=== PATIENT | female | born 1990 | race African-American/Black ===

== ENCOUNTER 2017-08-26 16:59 | Emergency (ER) | payer BC ==
[2017-08-26 17:18] LABS: Bilirubin Negative (Negative); Blood, Urine Negative (Negative); Clarity CLEAR (Clear); Glucose, Urine (Dipstick) Negative (Negative); Leukocyte Negative (Negative); Nitrite Negative (Negative); Protein, Urine (Dipstick) Negative (Neg-Trace); Specific Gravity, Urine 1.026 (1.002-1.036); pH, Urine 7.5 (5.0-9.0)
[2017-08-26 17:22] LABS: Pregnancy Test - Urine (BHCG) POSITIVE (Negative); Pregu Control Background? CLEAR/WHITE (CLR/WHITE); Pregu Control Bar Appear? YES (CONTROL BAR); Specific Gravity 1.026 (1.002-1.036)
[2017-08-26 17:26] LABS: #Basophils 0.1 thou/uL (0.0-0.2); #Eosinphils 0.1 thou/uL (0.0-0.7); #Lymphocytes 2.5 thou/uL (1.20-3.40); #Monocytes 0.6 thou/uL (0.11-0.59); #Neutrophils 3.1 thou/uL (1.40-6.50); %Basophils 1.2 % (0.0-1.0); %Eosinophils 0.8 % (0.0-10.0); %Lymphocytes 39.2 % (21.0-51.0); %Monocytes 9.7 % (0.0-10.0); %Neutrophils 49.1 % (42.0-75.0); Hemoglobin 14.8 g/dL (12.0-16.0); Mean Corpuscular HGB CONC 33.8 g/dL (32.0-36.0); Mean Corpuscular Hemoglobin 32.1 pg (27.0-31.0); Mean Corpuscular Volume 95.1 fl (81.0-99.0); Mean Platelet Volume 6.5 fL (7.4-10.4); Platelet Count 345 thou/uL (130-400); RBC Distribution Width 12.1 % (11.5-14.5); White Blood Cell (WBC) Count 6.4 thou/uL (4.8-10.8)
[2017-08-26 17:49] LABS: ALT (SGPT) 11 U/L (8-55); AST (SGOT) 19 U/L (5-34); Albumin 4.3 g/dL (3.5-5.0); Alkaline Phosphatase 57 U/L (40-150); Anion Gap 11 mmol/L (10-20); BUN (Urea Nitrogen) 14 mg/dL (7.0-18.7); Bilirubin, Total 0.5 mg/dL (0.2-1.2); Calc. Creatinine Clearance 0 mL/min (70-130); Calcium 9.8 mg/dL (7.8-10.44); Carbon Dioxide 23 mmol/L (22-29); Chloride 106 mmol/L (98-107); Estimated GFR-MDRD Greater than 90; Glucose 91 mg/dL (70-105); Lipase 24 U/L (8-78); Potassium 3.6 mmol/L (3.5-5.1); Protein, Total 8.3 g/dL (6.0-8.3); Sodium 136 mmol/L (136-145)
--- NOTE | 2017-08-26 18:20 | ULT ---
PELVIC ULTRASOUND: Date: 08/26/17 HISTORY: Pelvic pain, suprapubic pain with onset 2-3 days ago. Cramping. FINDINGS: Multiple endovaginal sonographic images of the pelvis are obtained. The uterus measures 8.2 cm x 4.1 cm x 4.6 cm. The endometrial stripe measures 1.3 cm in thickness, wh ich is at the upper limits of normal in a normal menstruating female patient. There is no fluid colle ction seen in the endometrial canal. The right ovary measures 4.5 cm x 4.4 cm x 4.0 cm. There is a 2.6 cm anechoic cystic structure seen i n the right ovary with thin, linear septation. Given the positive test, this could potentia lly represent a corpus luteal cyst. The left ovary has a normal sonographic appearance, measuring 3.3 cm x 1.9 cm x 1.8 cm. Doppler evaluation of the right ovary with spectral analysis and color flow evaluation does demonstra te arterial flow. Doppler evaluation and spectral analysis of the left ovary demonstrates venous flow , but arterial flow is difficult to elicit. No free fluid is seen in the cul-de-sac. IMPRESSION: 1. Endometrium is at the upper limits of normal in thickness, but no fluid collection is seen in the endometrial canal to suggest an intrauterine gestation. Findings may be related to very early intrau terine gestation. Ectopic cannot be excluded based on sonographic evaluation. 2. Dominant cyst within the right ovary with thin, linear septation. Given positive , this could potentially represent corpus luteal cyst. Follow-up evaluation suggested. 3. Normal appearing left ovary. Arterial flow is not able to be elicited in the left ovary, but this may be related to positioning. There is venous flow present in the left ovary. 4. Serial quantitative beta HCG levels and follow-up ultrasound examination may be beneficial for fu rther evaluation. POS: TYRONE
[2017-08-28 22:31] LABS: Chlamydia by PCR Not Detected (NotDetected); GC by PCR Not Detected (NotDetected)
== END 2017-08-26 20:35 | disposition home or self-care (01) ==
LOC: ERS 16:59
DX: O99.89 Other specified diseases and conditions complicating pregnancy, childbirth and the puerperium (principal); R10.9 Unspecified abdominal pain; O99.331 Smoking (tobacco) complicating pregnancy, first trimester; F17.210 Nicotine dependence, cigarettes, uncomplicated; Z3A.01 Less than 8 weeks gestation of pregnancy
CPT/HCPCS: 36415; 76856; 80053; 81003; 81025; 83690; 84702; 85025; 86900; 86901; 87086; 87480; 87491; 87510; 87591; 87660

== ENCOUNTER 2017-09-03 15:15 | Emergency (ER) | payer BC ==
[2017-09-03 15:59] LABS: #Basophils 0.1 thou/uL (0.0-0.2); #Eosinphils 0.1 thou/uL (0.0-0.7); #Lymphocytes 2.4 thou/uL (1.20-3.40); #Monocytes 0.7 thou/uL (0.11-0.59); #Neutrophils 3.4 thou/uL (1.40-6.50); %Basophils 0.9 % (0.0-1.0); %Eosinophils 1.1 % (0.0-10.0); %Lymphocytes 36.3 % (21.0-51.0); %Neutrophils 50.8 % (42.0-75.0); Hemoglobin 13.7 g/dL (12.0-16.0); Mean Corpuscular HGB CONC 34.5 g/dL (32.0-36.0); Mean Corpuscular Hemoglobin 32.2 pg (27.0-31.0); Mean Corpuscular Volume 93.4 fl (81.0-99.0); Mean Platelet Volume 6.5 fL (7.4-10.4); Platelet Count 351 thou/uL (130-400); Red Blood Cell (RBC) Count 4.27 mill/uL (4.20-5.40); White Blood Cell (WBC) Count 6.6 thou/uL (4.8-10.8)
[2017-09-03 16:59] LABS: Bilirubin Negative (Negative); Blood, Urine Trace (Negative); Clarity CLEAR (Clear); Glucose, Urine (Dipstick) Negative (Negative); Leukocyte Small (Negative); Nitrite Negative (Negative); Protein, Urine (Dipstick) Negative (Neg-Trace); Specific Gravity, Urine 1.024 (1.002-1.036); pH, Urine 6.5 (5.0-9.0)
[2017-09-03 17:06] LABS: Bacteria/HPF None Seen HPF (None Seen); Hyaline Casts/LPF NONE SEEN LPF (0-3 Hyaline); RBC/HPF None Seen HPF (0-3); Squamous Epithelial 0-3 HPF (0-3); WBC/HPF 0-3 HPF (0-3)
--- NOTE | 2017-09-03 18:39 | ULT ---
PELVIC ULTRASOUND INCLUDING TRANSABDOMINAL AND TRANSVAGINAL AND VASCULAR DUPLEX WITH COLOR AND SPECTR AL DOPPLER IMAGING: HISTORY: A 27-year-old female with a history of vaginal bleeding. An hCG is 5452. COMPARISON: 08/26/2017 FINDINGS: Again noted is markedly thickened, heterogeneous endometrium. There is now what appears to be a gest ational sac, which measures approximately 0.6 cm, which would be equivalent to approximately 5 weeks' and 2 days' gestation. Again noted is a right ovarian cyst, measuring 3.1 x 3.5 cm. The left ovary is not seen. There is some heterogeneous fluid density around the edge of a portion of the gestatio nal sac, suspicious for retrochorionic hemorrhage. IMPRESSION: Interval development of a small gestational sac and possible small yolk sac with some probable retroc horionic hemorrhage associated with it. Follow-up serum hCGs are recommended. If the status of the remains in doubt, consideration for another follow-up ultrasound study in several weeks yodit ht be of benefit. Stable right ovarian cyst. Nonvisualized left ovary. POS: TYRONE
== END 2017-09-03 18:15 | disposition home or self-care (01) ==
LOC: ERS 15:15
DX: O20.0 Threatened abortion (principal); Z87.891 Personal history of nicotine dependence
CPT/HCPCS: 36415; 76856; 81003; 81015; 84702; 85025; 86850; 86900; 86901

== ENCOUNTER 2018-03-10 19:13 | Emergency (ER) | payer BC, OTHER ==
[2018-03-10] MEDS ORDERED: Acetaminophen 500 MG TAB ONE (19:49)
== END 2018-03-10 20:14 | disposition home or self-care (01) ==
LOC: ERS 19:13
DX: O99.89 Other specified diseases and conditions complicating pregnancy, childbirth and the puerperium (principal); R51 Headache; R09.81 Nasal congestion; Z87.891 Personal history of nicotine dependence; Z3A.32 32 weeks gestation of pregnancy
CPT/HCPCS: 99283

== ENCOUNTER 2018-03-12 17:20 | Day surgery (SDC) | payer OTHER ==
[2018-03-12 18:04] VITALS: BMI 20.3
[2018-03-12 18:09] VITALS: BP 117/76; TEMP 99.3
--- NOTE | 2018-03-12 19:01 | PDOC.LDHP ---
Labor and Delivery H&P Chief complaint: abdominal pain HPI: 28 y/o G1 at 32w2d, patient of Dr. Alee Zapata, presents with bilateral lower abdominal pain with activity. Since arrival and lying in bed, has not had any more pain. Took Tylenol a couple days ago but none today. Has not tried anything else for relief. Denies VB, LOF, ctx, or decreased FM. ROS neg for HEENT, CV, pulm, GI, , neuro, psych, skin, musculoskeletal, or constitutional symptoms other than mentioned above. Past Medical History: None Previous surgical history: none Allergies/Adverse Reactions: Allergies Allergy/AdvReac Type Severity Reaction Status Date / Time No Known Allergies Allergy Verified 03/12/18 18:00 Social history: none - Physical Exam Vital signs reviewed and normal: yes General: NAD, resting Lungs: nonlabored breathing Abdomen: gravid Extremeties: no edema FHT: category 1 (130s, mod variability, + accels, no decels) [place] contractions every: None - Vaginal Exam cm dilated: 0 Effacement: 0% Station: -3 - Assessment 28 y/o G1 at 32w2d with musculoskeletal discomforts of . status reassuring with reactive NST. - Plan -: Comfort measures discussed. D/c home with precautions. Advised to keep next appointment on Sunday with Dr. Zapata. Discussed with Dr. Zapata.
== END 2018-03-12 18:45 | disposition home or self-care (01) ==
LOC: L&D/OP 17:20
PROVIDERS: ATTEND Obstetrics & Gynecology
DX: O99.89 Other specified diseases and conditions complicating pregnancy, childbirth and the puerperium (principal); R10.9 Unspecified abdominal pain; Z3A.32 32 weeks gestation of pregnancy
CPT/HCPCS: 99282

== ENCOUNTER 2018-04-20 21:22 | Day surgery (SDC) | payer OTHER ==
[2018-04-20 22:11] VITALS: BMI 22.2
[2018-04-20 22:12] VITALS: BP 150/84; TEMP 98.6
--- NOTE | 2018-04-20 22:23 | PDOC.FPROB ---
FMR OB H&P: HPI - History of Present Illness Chief Complaint: Ctx History of Present Illness: 28 yo F @ 37.6 weeks presents w/ c/c of intermittent ctx. Pt reports being at dinner and having and episode of 3 ctx 5 minutes apart. Says they then stopped and while she was on her way here she had a few episodes of her belly tightening. Pt reports not drinking a lot of fluids today. +FM, Denies any LOF or vaginal bleeding. Denies any urinary sx's such as burning or increased frequency. Denies any increased vaginal discharge, itching or irritation. Denies any n/v. Denies any recent illness. Denies any fever or chills. Primary Care Physician: Dr. Zapata FMR OB H&P: Current - Care : 1 Para: 0 Gestational age: 37.6 - OB Labs Blood type: B RH: positive Antibody Screen: negative HIV: negative RPR: negative HepBsAg: negative Rubella: immune Urine drug screen: negative GBS: unknown (Pending) FMR OB H&P: History - Past Medical History PMH: N/A - OB History OB History: N/A - [employer] History [employer] History: LEEP (2016) - Surgical History Sx History: N/A - Social History Social History: Denies smoking, alcohol or illicit substance use at this time. FMR OB H&P: Medications - Current Home Medications: Medication Instructions Recorded Confirmed Type No122/Iron/Folic Acid 1 capsule PO DAILY 03/12/18 03/12/18 History [ Multi Tablet] Allergies/Adverse Reactions: Allergies Allergy/AdvReac Type Severity Reaction Status Date / Time No Known Allergies Allergy Verified 03/12/18 18:00 FMR OB H&P: ROS - Review of Systems General: denies: fever/chills, weight/appetite/sleep changes, fatigue, recent trauma Eyes: denies: vision changes ENT: denies: nasal congestion, rhinorrhea Cardiovascular: denies: edema Respiratory: denies: cough, congestion, shortness of breath Gastrointestinal: reports: abdominal pain. denies: nausea, vomiting Genitourinary (Female): reports: contractions. denies: incontinence, vaginal discharge, vaginal pain, vaginal bleeding, vaginal pressure Musculoskeletal: reports: pain. denies: stiffness, tenderness, redness, swelling Neurologic: denies: numbness, weakness, loss of counsciousness, headache Integumentary: denies: itching, rash Hematologic/Lymphatic: denies: prolonged or excessive bleeding Psychological: denies: depression, anxiety FMR OB H&P: Vital Signs - Maternal Vital signs: Vital Signs - First Documented Temp Pulse Resp BP 98.6 F 84 18 150/84 H 04/20/18 22:08 04/20/18 22:08 04/20/18 22:08 04/20/18 22:08 - Heart Tones Baseline: 135 Variability: moderate Acceleration: present Deceleration: variable Category: category 2 [place] contractions every: episodic, not regular. Every 2-4 minutes and then pauses FMR OB H&P: Physical Exam - Physical Exam General: NAD, awake, alert and oriented HEENT: normocephalic and atraumatic Neck: supple Heart: RRR, normal S1/S2, no murmurs/rubs/gallops, pulses present, no edema General: CTAB, no respiratory distress, good air movement, no rales/rhonchi, no wheezing, no retractions Abdomen: soft, gravid, non-tender, bowel sound present, no masses, no hernias Musculoskeletal: pulses present, FROM in all four extremities Neurological: sensation to pain,touch and proprioception grossly normal, DTR +2 , no focal deficit Skin: no rash Psychiatric: normal mood and affect - Pelvic Exam SVE: /-2 FMR OB H&P: A/P Disposition: 28 yo presents for CTX -Will observe on L&D for a couple hours. Will repeat cervical check then as well. continue to montor to Rule out labor. -Promote PO intake. Elevated BP -Promote PO intake -Will continue to monitor. No severe range pressures -Will want to follow up with OB next week. Discussion: Date/Time: 04/20/182220 This H&P was discussed with [] and [] who agree with the above documentation and plan.
== END 2018-04-20 23:45 | disposition home or self-care (01) ==
LOC: L&D/OP 21:22
PROVIDERS: ATTEND Obstetrics & Gynecology
DX: O47.1 False labor at or after 37 completed weeks of gestation (principal); Z3A.37 37 weeks gestation of pregnancy
CPT/HCPCS: 99283

== ENCOUNTER 2018-04-22 01:12 | Inpatient (IN) | payer OTHER ==
[2018-04-22 01:44] VITALS: BMI 22.2
[2018-04-22] MEDS ORDERED: Morphine 10 MG/ML VIAL IM PRN (02:22)
[2018-04-22] MEDS ORDERED: Ondansetron ODT 8 MG TAB SL PRN (02:23)
[2018-04-22 04:12] LABS: Hemoglobin 11.3 g/dL (12.0-16.0); Mean Corpuscular HGB CONC 32.7 g/dL (32.0-36.0); Mean Corpuscular Hemoglobin 30.2 pg (27.0-31.0); Mean Corpuscular Volume 92.1 fL (78.0-98.0); Mean Platelet Volume 6.9 fL (7.4-10.4); Platelet Count 321 thou/uL (130-400); RBC Distribution Width 13.2 % (11.5-14.5); Red Blood Cell (RBC) Count 3.75 mill/uL (4.20-5.40)
[2018-04-22 04:37] LABS: ALT (SGPT) 13 U/L (8-55); AST (SGOT) 22 U/L (5-34); Albumin 3.5 g/dL (3.5-5.0); Alkaline Phosphatase 317 U/L (40-150); Anion Gap 14 mmol/L (10-20); BUN (Urea Nitrogen) 8 mg/dL (7.0-18.7); Bilirubin, Total 0.3 mg/dL (0.2-1.2); Calc. Creatinine Clearance 111 mL/min (70-130); Calcium 9.5 mg/dL (7.8-10.44); Carbon Dioxide 20 mmol/L (22-29); Chloride 105 mmol/L (98-107); Estimated GFR-MDRD Greater than 90; Globulin 4.2 g/dL (2.4-3.5); Glucose 79 mg/dL (70-105); Potassium 3.6 mmol/L (3.5-5.1); Protein, Total 7.7 g/dL (6.0-8.3); Sodium 135 mmol/L (136-145); Uric Acid 4.5 mg/dL (2.6-6.0)
[2018-04-22 05:41] LABS: Creatinine, Urine 124.94 mg/dL (47-110)
[2018-04-22] MEDS ORDERED: Ibuprofen 800 MG TAB PO PRN (07:23)
[2018-04-22] MEDS ORDERED: NS / Oxytocin 40 units/1000ml 1,000 ML IV PRN (07:23)
[2018-04-22] MEDS ORDERED: Ondansetron PF 4 MG/2 ML Vial IVP PRN ×2 (07:23→17:20)
[2018-04-22] MEDS ORDERED: Lidocaine 1% (PF) 30 ML VIAL SC PRN (07:23)
[2018-04-22] MEDS ORDERED: NS w/ Oxytocin 10 units 500 ML IV SCH (07:30)
[2018-04-22] MEDS ORDERED: Lactated Ringer's 1,000 ML IV SCH (07:30)
[2018-04-22] MEDS: Lactated Ringer's 1,000 ML IV SCH (07:50)
[2018-04-22 08:09] LABS: Syphilis Antibody Nonreactive (Nonreactive); Syphilis Antibody Index 0.08 S/CO (<1.00 Non-Reactive)
[2018-04-22 08:10] LABS: HBSAg Index 0.17 S/CO (0-0.99); Hep B Surf Ag Non-Reactive S/CO (NonReactive)
[2018-04-22] MEDS ORDERED: Butorphanol Tartrate 1 MG/ML VIAL ONE (11:32)
[2018-04-22] MEDS ORDERED: Butorphanol Tartrate 1 MG/ML VIAL SLOW IVP PRN (11:37)
[2018-04-22] MEDS ORDERED: Lanolin Ointment 7 GM TUBE TOP PRN (17:20)
[2018-04-22] MEDS ORDERED: Adacel (T-DAP) 0.5 ML VIAL IM ONE (17:20)
[2018-04-22] MEDS ORDERED: Zolpidem Tartrate 5 MG TAB PO PRN (17:20)
[2018-04-22] MEDS ORDERED: Preparation H Ointment 28 GM TUBE PR PRN (17:20)
[2018-04-22] MEDS ORDERED: Benzocaine/Menthol 20-0.5% 60 ML CAN TOP PRN (17:20)
[2018-04-22] MEDS ORDERED: HYDROcodone/Acetaminophen 5/325 mg Tablet PO PRN (17:20)
[2018-04-22] MEDS ORDERED: Milk Of Magnesia 30 ML UDCUP PO PRN (17:20)
[2018-04-22] MEDS ORDERED: Bisacodyl 10 MG SUPP PR PRN (17:20)
[2018-04-22] MEDS ORDERED: NS / Oxytocin 40 units/1000ml 1,000 ML IV SCH (17:30)
--- NOTE | 2018-04-22 18:38 | OP ---
DATE OF SURGERY: 04/22/2018 PREOPERATIVE DIAGNOSES: 1. A 28-year-old G1 at 38 and 1, inactive labor with regular contractions. 2. Gestational hypertension with an elevated blood pressure in the office in triage with spontaneous resolution and negative labs. 3. Artificial rupture of membranes with clear fluids. 4. Group B Streptococcus negative. POSTOPERATIVE DIAGNOSES: 1. A 28-year-old G1 at 38 and 1, inactive labor with regular contractions. 2. Gestational hypertension with an elevated blood pressure in the office in triage with spontaneous resolution and negative labs. 3. Artificial rupture of membranes with clear fluids. 4. Group B Streptococcus negative. 5. Natural delivery without anesthesia. 6. Liveborn male with Apgars of 8 and 9 at 1 and 5 minutes respectively. SURGEON: Alee Zapata M.D. PROCEDURES: Spontaneous vaginal delivery. ANESTHESIA: None. QUANTITATIVE BLOOD LOSS: 167 mL CLINICAL HISTORY: This patient is a 28-year-old -[place] female who [facility] at approximately 1:30 with complaints of regular painful contractions and pressure. P atient was evaluated and noted to be 1 cm and 80% effaced and after her evaluation, she was also note d to have elevated blood pressures into the severe range. Laboratory studies were performed and note d normal liver enzymes, platelets, and blood counts. The patient was monitored and rechecked and not ed to be 1 cm, 90% effaced with a change in station. She was admitted and an amniotomy was performed with clear fluid. She then requested Stadol for assistance with her pain and continued to do comfor t measures for management of pain. The patient progressed to complete cervical dilation and felt the need to push. DETAILS OF PROCEDURE: The patient with good maternal effort was able to push the vertex to the MAGNOLIA position and . The head was delivered. Nuchal cord was reduced at the perineum. The a nterior shoulder followed by the posterior shoulder followed by the remainder of the 's body wa s delivered. The cord was doubly clamped and cut, and the infant was handed off to the neonatology t ea in attendance to the delivery for stimulation. The cord blood was obtained. The placenta was de livered spontaneously intact with a 3-vessel cord. Uterine massage was then performed and the introi tus vagina and cervix were examined and noted to be hemostatic with a small midline first degree tear that was not bleeding. The patient was able to recover in Labor and Delivery in satisfactory condit ion with her . The again was a liveborn male with Apgars of 8 and 9 at 1 and 5 minutes respectively. There were no other issues surrounding her delivery.
[2018-04-22] MEDS: Docusate Calcium (SURFAK) 240 MG CAP PO SCH (21:42)
[2018-04-23] MEDS: Ibuprofen 800 MG TAB PO SCH ×4 (00:05→21:29)
[2018-04-23] MEDS: HYDROcodone/Acetaminophen 5/325 mg Tablet PO PRN ×3 (06:40→23:07)
[2018-04-23] MEDS: Docusate Calcium (SURFAK) 240 MG CAP PO SCH ×2 (08:20→21:29)
[2018-04-23] MEDS: Prenatal Vitamin 1 TAB PO SCH (08:20)
[2018-04-23] MEDS: Ferrous Sulfate 325 MG TAB PO SCH ×2 (08:21→17:22)
[2018-04-23] MEDS: Lactated Ringer's 1,000 ML IV SCH (08:22)
[2018-04-24] MEDS: Ibuprofen 800 MG TAB PO SCH ×2 (05:40→14:13)
[2018-04-24 07:57] VITALS: BP 133/83; TEMP 98.1
[2018-04-24] MEDS: Ferrous Sulfate 325 MG TAB PO SCH (09:29)
[2018-04-24] MEDS: Docusate Calcium (SURFAK) 240 MG CAP PO SCH (09:30)
[2018-04-24] MEDS: Prenatal Vitamin 1 TAB PO SCH (09:30)
== END 2018-04-24 14:55 | disposition home or self-care (01) | DRG 807 ==
LOC: L&D/OP 01:12 → L&D 08:04 → 3SW 18:21
PROVIDERS: ADMIT Obstetrics & Gynecology; ATTEND Obstetrics & Gynecology
PROC: 10E0XZZ Delivery of Products of Conception, External Approach (ICD-10-PCS; principal; 2018-04-22)
PROC: 4A1HXCZ Monitoring of Products of Conception, Cardiac Rate, External Approach (ICD-10-PCS; 2018-04-22)
PROC: 4A1HXFZ Monitoring of Products of Conception, Cardiac Rhythm, External Approach (ICD-10-PCS; 2018-04-22)
PROC: 10907ZC Drainage of Amniotic Fluid, Therapeutic from Products of Conception, Via Natural or Artificial Opening (ICD-10-PCS; 2018-04-22)
DX: O13.4 Gestational [pregnancy-induced] hypertension without significant proteinuria, complicating childbirth (principal); Z37.0 Single live birth; Z3A.38 38 weeks gestation of pregnancy; O76 Abnormality in fetal heart rate and rhythm complicating labor and delivery; O70.0 First degree perineal laceration during delivery; O69.81X0 Labor and delivery complicated by cord around neck, without compression, not applicable or unspecified; O99.344 Other mental disorders complicating childbirth; F41.9 Anxiety disorder, unspecified; Z87.891 Personal history of nicotine dependence
CPT/HCPCS: 36415; 51701; 80053; 82570; 84156; 84550; 85027; 86780; 86850; 86900; 86901; 87340; 99285; J0595; J2001

== ENCOUNTER 2018-08-28 | Emergency (ER) | payer OTHER ==
[2018-08-28 00:33] LABS: #Basophils 0.1 thou/uL (0.0-0.2); #Eosinphils 0.1 thou/uL (0.0-0.7); #Lymphocytes 2.7 thou/uL (1.20-3.40); #Monocytes 0.6 thou/uL (0.11-0.59); #Neutrophils 2.8 thou/uL (1.40-6.50); %Basophils 1.1 % (0.0-1.0); %Eosinophils 0.9 % (0.0-10.0); %Monocytes 9.2 % (0.0-10.0); %Neutrophils 44.8 % (42.0-75.0); Mean Corpuscular HGB CONC 33.8 g/dL (32.0-36.0); Mean Corpuscular Hemoglobin 31.1 pg (27.0-31.0); Mean Corpuscular Volume 91.9 fL (78.0-98.0); Mean Platelet Volume 6.9 fL (7.4-10.4); Platelet Count 348 thou/uL (130-400); RBC Distribution Width 12.8 % (11.5-14.5); Red Blood Cell (RBC) Count 4.51 mill/uL (4.20-5.40); White Blood Cell (WBC) Count 6.2 thou/uL (4.8-10.8)
[2018-08-28 00:52] LABS: ALT (SGPT) 11 U/L (8-55); AST (SGOT) 19 U/L (5-34); Albumin 4.4 g/dL (3.5-5.0); Alkaline Phosphatase 74 U/L (40-150); Anion Gap 13 mmol/L (10-20); BUN (Urea Nitrogen) 17 mg/dL (7.0-18.7); Bilirubin, Total 0.4 mg/dL (0.2-1.2); CK (CPK) 128 U/L (29-168); Calc. Creatinine Clearance 0 mL/min (70-130); Carbon Dioxide 25 mmol/L (22-29); Chloride 103 mmol/L (98-107); Estimated GFR-MDRD Greater than 90; Globulin 3.6 g/dL (2.4-3.5); Glucose 97 mg/dL (70-105); Lipase 21 U/L (8-78); Potassium 3.8 mmol/L (3.5-5.1); Sodium 137 mmol/L (136-145)
[2018-08-28] MEDS ORDERED: Aspirin 325 MG TAB ONE (02:20)
--- NOTE | 2018-08-28 08:41 | RAD ---
CHEST ONE VIEW: INDICATIONS: Chest pain under left breast that started 20 minutes prior to arrival. COMPARISON: 07/21/2014 FINDINGS: The lungs are clear. The heart size is normal. No pleural effusion or pneumothorax is evident. No acute osseous abnormality is evident. IMPRESSION: No acute cardiopulmonary abnormality. POS: BH
== END 2018-08-28 03:29 | disposition home or self-care (01) ==
LOC: ERS
DX: R07.89 Other chest pain (principal)
CPT/HCPCS: 36415; 71045; 80053; 82550; 83690; 84484; 85025; 85379; 93005

== ENCOUNTER 2019-01-16 08:33 | Emergency (ER) | payer OTHER ==
[2019-01-16 09:00] LABS: Bilirubin Negative (Negative); Blood, Urine Negative (Negative); Clarity Clear (Clear); Glucose, Urine (Dipstick) Normal (Negative); Leukocyte Negative Leu/uL (Negative); Nitrite Negative (Negative); Protein, Urine (Dipstick) 20 mg/dL (Neg-Trace); Urobilinogen Normal mg/dL (Less than 2)
[2019-01-16 09:09] LABS: Pregnancy Test - Urine (BHCG) Negative (Negative); Pregu Control Background? CLEAR/WHITE (CLR/WHITE); Pregu Control Bar Appear? YES (CONTROL BAR); Specific Gravity 1.035 (1.002-1.036)
[2019-01-16 09:21] LABS: #Lymphocytes 2.1 thou/uL (1.20-3.40); #Monocytes 0.7 thou/uL (0.11-0.59); #Neutrophils 2.6 thou/uL (1.40-6.50); %Basophils 0.6 % (0.0-1.0); %Eosinophils 0.9 % (0.0-10.0); %Lymphocytes 38.6 % (21.0-51.0); %Monocytes 12.6 % (0.0-10.0); %Neutrophils 47.2 % (42.0-75.0); Hemoglobin 13.8 g/dL (12.0-16.0); Mean Corpuscular HGB CONC 33.5 g/dL (32.0-36.0); Mean Corpuscular Hemoglobin 31.2 pg (27.0-31.0); Mean Corpuscular Volume 93.1 fL (78.0-98.0); Platelet Count 319 thou/uL (130-400); RBC Distribution Width 12.5 % (11.5-14.5); Red Blood Cell (RBC) Count 4.42 mill/uL (4.20-5.40); White Blood Cell (WBC) Count 5.5 thou/uL (4.8-10.8)
[2019-01-16 09:40] LABS: ALT (SGPT) 7 U/L (8-55); AST (SGOT) 15 U/L (5-34); Albumin 4.2 g/dL (3.5-5.0); Alkaline Phosphatase 65 U/L (40-150); Anion Gap 10 mmol/L (10-20); BUN (Urea Nitrogen) 10 mg/dL (7.0-18.7); Bilirubin, Total 0.3 mg/dL (0.2-1.2); Calc. Creatinine Clearance 0 mL/min (70-130); Calcium 9.3 mg/dL (7.8-10.44); Carbon Dioxide 27 mmol/L (22-29); Chloride 105 mmol/L (98-107); Estimated GFR-MDRD Greater than 90; Globulin 3.5 g/dL (2.4-3.5); Glucose 65 mg/dL (70-105); Potassium 3.5 mmol/L (3.5-5.1); Protein, Total 7.7 g/dL (6.0-8.3); Sodium 138 mmol/L (136-145)
[2019-01-16] MEDS ORDERED: Ketorolac Tromethamine 60 MG/2 ML VIAL ONE (10:36)
--- NOTE | 2019-01-16 10:37 | ULT ---
Exam: Transabdominal and endovaginal pelvic ultrasound HISTORY:Pelvic pain. Symptoms x1 week. Patient took a Plan B one week ago. Abdominal pain follo wing. COMPARISON: 08/26/2017 TECHNIQUE: Transabdominal and endovaginal imaging of the pelvis is performed. Ovaries are interrogate d with grayscale, color flow, Doppler imaging and spectral wave form analysis FINDINGS: Uterus: No myometrial masses. Uterus measurin.0 x 3.8 x 5.9 cm. Endometrium: Homogeneous echotexture. Endometrium diameter: 0.7 cm. . Free fluid: None Left ovary: Normal echotexture. There is an anechoic focus in the central aspect of the left ovary me asuring 3.3 x 3.0 x 2.9 cm. A left ovarian cyst is favored. Left ovary measurements: 4.5 x 4.3 x 3.7 cm Right ovary: Normal echotexture Right ovary measurement: 3.4 x 2.2 x 2.0 cm Ovarian Doppler: There is vascular flow to the left and right ovary. IMPRESSION: 1. No sonographic evidence of a intrauterine gestation. Correlate with serum beta HCG. 2. Left ovarian cyst. Follow-up ultrasound in 6-8 weeks to ensure resolution.
[2019-01-16] MEDS ORDERED: cefTRIAXone\\ROCEPHIN 250 MG VIAL ONE (11:19)
[2019-01-16] MEDS ORDERED: Azithromycin 250 MG TAB ONE (11:19)
[2019-01-16] MEDS ORDERED: Lidocaine 1% PF 5 ML VIAL ONE ×2 (11:21→11:24)
[2019-01-16] MEDS ORDERED: Acetaminophen 500 MG TAB ONE (11:28)
[2019-01-17 01:40] LABS: Chlamydia by PCR Not Detected (NotDetected); GC by PCR Not Detected (NotDetected)
== END 2019-01-16 11:41 | disposition home or self-care (01) ==
LOC: ERS 08:33
DX: N83.202 Unspecified ovarian cyst, left side (principal)
CPT/HCPCS: 36415; 76856; 80053; 81003; 81025; 85025; 87491; 87591; 96372; J0696; J1885; J2001

== ENCOUNTER 2019-06-05 17:28 | Emergency (ER) | payer MEDICAID, OTHER ==
[2019-06-05 17:58] LABS: Bacteria/HPF 2+ HPF (None Seen); Bilirubin Negative (Negative); Blood, Urine 3+ (Negative); Clarity Turbid (Clear); Glucose, Urine (Dipstick) Normal (Negative); Leukocyte 500 Leu/uL (Negative); Nitrite 2+ (Negative); Pregnancy Test - Urine (BHCG) Negative (Negative); Pregu Control Background? CLEAR/WHITE (CLR/WHITE); Pregu Control Bar Appear? YES (CONTROL BAR); Protein, Urine (Dipstick) 200 mg/dL (Neg-Trace); RBC/HPF Greater than 50 HPF (0-3); Specific Gravity 1.026 (1.002-1.036); Squamous Epithelial 0-3 HPF (0-3); Urobilinogen Normal mg/dL (Less than 2); WBC/HPF Greater than 50 HPF (0-3)
== END 2019-06-05 19:10 | disposition home or self-care (01) ==
LOC: ERS 17:28
DX: N39.0 Urinary tract infection, site not specified (principal)
CPT/HCPCS: 81003; 81015; 81025; 87077; 87086; 87186; 99283

== ENCOUNTER 2020-02-04 17:13 | Emergency (ER) | payer MEDICAID, OTHER, SELFPAY ==
[2020-02-04 17:46] LABS: Bacteria/HPF None Seen HPF (None Seen); Bilirubin Negative (Negative); Blood, Urine Negative (Negative); Clarity Clear (Clear); Glucose, Urine (Dipstick) Normal (Negative); Ketone, Urine Negative (Negative); Leukocyte 25 Leu/uL (Negative); Nitrite Negative (Negative); Protein, Urine (Dipstick) Negative (Neg-Trace); RBC/HPF 0-3 HPF (0-3); Specific Gravity, Urine 1.027 (1.002-1.036); Urobilinogen Normal mg/dL (Less than 2); WBC/HPF 0-3 HPF (0-3)
[2020-02-04 17:54] LABS: #Basophils 0.1 thou/uL (0.0-0.2); #Lymphocytes 1.7 thou/uL (1.20-3.40); #Monocytes 0.5 thou/uL (0.11-0.59); #Neutrophils 4.4 thou/uL (1.40-6.50); %Basophils 0.7 % (0.0-1.0); %Eosinophils 0.7 % (0.0-10.0); %Lymphocytes 25.5 % (21.0-51.0); %Monocytes 7.4 % (0.0-10.0); %Neutrophils 65.7 % (42.0-75.0); Hemoglobin 12.3 g/dL (12.0-16.0); Mean Corpuscular HGB CONC 34.1 g/dL (32.0-36.0); Mean Corpuscular Hemoglobin 31.9 pg (27.0-31.0); Mean Corpuscular Volume 93.7 fL (78.0-98.0); Mean Platelet Volume 6.8 fL (7.4-10.4); Platelet Count 325 thou/uL (130-400); RBC Distribution Width 12.8 % (11.5-14.5); Red Blood Cell (RBC) Count 3.87 mill/uL (4.20-5.40); White Blood Cell (WBC) Count 6.7 thou/uL (4.8-10.8)
[2020-02-04 18:16] LABS: ALT (SGPT) 8 U/L (8-55); AST (SGOT) 18 U/L (5-34); Albumin 3.7 g/dL (3.5-5.0); Alkaline Phosphatase 51 U/L (40-110); Anion Gap 12 mmol/L (10-20); BUN (Urea Nitrogen) 11 mg/dL (7.0-18.7); Bilirubin, Total 0.2 mg/dL (0.2-1.2); Calc. Creatinine Clearance 0 mL/min (70-130); Calcium 9.3 mg/dL (7.8-10.44); Carbon Dioxide 21 mmol/L (22-29); Chloride 104 mmol/L (98-107); Estimated GFR-MDRD Greater than 90; Glucose 82 mg/dL (70-105); Lipase 33 U/L (8-78); Potassium 3.8 mmol/L (3.5-5.1); Protein, Total 7.7 g/dL (6.0-8.3); Sodium 133 mmol/L (136-145)
--- NOTE | 2020-02-04 20:26 | ULT ---
EXAM: US Abdomen Limited CLINICAL HISTORY: patient, 18 weeks. Right lower quadrant pain.. COMPARISON: None. FINDINGS: RIGHT LOWER QUADRANT: no evidence of a blind-ending dilated tubular structure to demonstrate a fluid- filled appendix. RIGHT ADNEXA: right ovary has a normal echotexture with a possible resolving corpus luteal cyst. Righ t ovary measures 3.5 x 4.7 x 2.2 cm. GESTATION: single intrauterine gestation. heart tones with a rate of 152 bpm IMPRESSION: 1. Probable corpus luteal cyst involving the right ovary 2. Nonvisualization of the appendix. If there is concern for appendicitis, abdomen MRI can be perform ed without contrast
== END 2020-02-04 20:41 | disposition home or self-care (01) ==
LOC: ERS 17:13
DX: O99.89 Other specified diseases and conditions complicating pregnancy, childbirth and the puerperium (principal); R10.13 Epigastric pain; R10.813 Right lower quadrant abdominal tenderness; Z3A.18 18 weeks gestation of pregnancy
CPT/HCPCS: 36415; 76705; 80053; 81003; 81015; 83690; 85025

== ENCOUNTER 2023-04-09 08:25 | Emergency (ER) | payer OTHER, SELFPAY ==
[2023-04-09 09:14] LABS: Bilirubin Negative (Negative); Blood, Urine 3+ (Negative); CAUTI Indications for Culture Pelvic or flank pain; Clarity Extra Turbid (Clear); Glucose, Urine (Dipstick) Normal (Negative); Ketone, Urine Trace mg/dL (Negative); Leukocyte 500 Leu/uL (Negative); Nitrite 2+ (Negative); Protein, Urine (Dipstick) 100 mg/dL (Neg-Trace); RBC/HPF Greater than 50 HPF (0-3); Urobilinogen Normal mg/dL (Less than 2); WBC/HPF Greater than 50 HPF (0-3)
[2023-04-09 09:16] LABS: Bacteria/HPF 1+ HPF (None Seen); Pregnancy Test - Urine (BHCG) Negative (Negative); Pregu Control Background? CLEAR/WHITE (CLR/WHITE); Pregu Control Bar Appear? YES (CONTROL BAR)
[2023-04-09 09:18] LABS: Urine Culture Reflex Yes Yes
[2023-04-09 09:34] LABS: #Eosinphils 0.1 thou/uL (0.0-0.7); #Monocytes 0.5 thou/uL (0.11-0.59); #Neutrophils 2.5 thou/uL (1.40-6.50); %Basophils 0.6 % (0.0-1.0); %Eosinophils 1.2 % (0.0-10.0); %Lymphocytes 39.9 % (21.0-51.0); %Monocytes 9.1 % (0.0-10.0); Hematocrit 41.6 % (36.0-47.0); Hemoglobin 14.2 g/dL (12.0-16.0); Mean Corpuscular HGB CONC 34.1 g/dL (32.0-36.0); Mean Corpuscular Hemoglobin 31.3 pg (27.0-31.0); Mean Corpuscular Volume 91.6 fl (78.0-98.0); Mean Platelet Volume 9.4 fL (7.4-10.4); Platelet Count 372 10x3/uL (130-400); RBC Distribution Width 13.2 % (11.5-14.5); Red Blood Cell (RBC) Count 4.54 mill/uL (4.20-5.40); White Blood Cell (WBC) Count 5.1 10x3/uL (4.8-10.8)
[2023-04-09 10:03] LABS: ALT (SGPT) 9 U/L (8-55); AST (SGOT) 23 U/L (5-34); Albumin 4.9 g/dL (3.5-5.0); Alkaline Phosphatase 54 U/L (40-110); Anion Gap 14 mmol/L (10-20); BUN (Urea Nitrogen) 11 mg/dL (7.0-18.7); Bilirubin, Total 0.5 mg/dL (0.2-1.2); Calc. Creatinine Clearance 0 mL/min (70-130); Calcium 9.8 mg/dL (7.8-10.44); Carbon Dioxide 23 mmol/L (22-29); Chloride 105 mmol/L (98-107); Estimated GFR 91; Globulin 3.7 g/dL (2.4-3.5); Glucose 82 mg/dL (70-105); Potassium 4.3 mmol/L (3.5-5.1); Protein, Total 8.6 g/dL (6.0-8.3); Sodium 138 mmol/L (136-145)
== END 2023-04-09 10:37 | disposition home or self-care (01) ==
LOC: ERS 08:25
DX: N39.0 Urinary tract infection, site not specified (principal)
CPT/HCPCS: 36415; 80053; 81001; 81025; 85025; 87077; 87086; 87186; 99283

== ENCOUNTER 2024-10-23 12:05 | Outpatient (CLI) | payer BC | END 2024-10-23 12:06 | disposition home or self-care (01) | LOC: SCSRAD 12:05 | PROVIDERS: ATTEND Student in an Organized Health Care Education/Training Program | DX: K59.09 Other constipation (principal); R14.0 Abdominal distension (gaseous) | CPT/HCPCS: 74018 ==

== ENCOUNTER 2025-03-04 14:29 | Outpatient (CLI) | payer BC | END 2025-03-04 14:30 | disposition home or self-care (01) | LOC: SCSRAD 14:29 | PROVIDERS: ATTEND Student in an Organized Health Care Education/Training Program | DX: R20.2 Paresthesia of skin (principal); M43.12 Spondylolisthesis, cervical region; M54.12 Radiculopathy, cervical region; M43.8X2 Other specified deforming dorsopathies, cervical region | CPT/HCPCS: 72052 ==